=== PATIENT | female | born 1970 | race Caucasian/White ===

== ENCOUNTER 2018-05-29 09:56 | Outpatient (CLI) | payer OTHER ==
[2018-05-29 11:09] LABS: Hemoglobin 12.4 g/dL (12.0-16.0); Mean Corpuscular HGB CONC 31.5 g/dL (32.0-36.0); Mean Corpuscular Hemoglobin 28.3 pg (27.0-31.0); Mean Corpuscular Volume 89.7 fL (78.0-98.0); Mean Platelet Volume 7.8 fL (7.4-10.4); Platelet Count 331 thou/uL (130-400); Red Blood Cell (RBC) Count 4.37 mill/uL (4.20-5.40); White Blood Cell (WBC) Count 6.1 thou/uL (4.8-10.8)
[2018-05-29 11:15] LABS: INR-International Normal Ratio 0.9; PTT 29.6 SEC (22.9-36.1); Prothrombin Time 12.4 SEC (12.0-14.7)
[2018-05-29 11:35] LABS: Anion Gap 10 mmol/L (10-20); BUN (Urea Nitrogen) 7 mg/dL (7.0-18.7); Calc. Creatinine Clearance 0 mL/min (70-130); Calcium 9.1 mg/dL (7.8-10.44); Carbon Dioxide 27 mmol/L (22-29); Chloride 106 mmol/L (98-107); Estimated GFR-MDRD 82; Glucose 81 mg/dL (70-105); Potassium 4.4 mmol/L (3.5-5.1); Sodium 139 mmol/L (136-145)
[2018-05-29 12:37] LABS: BHCG - Serum Negative (NEGATIVE); Pregs Control Background? CLEAR/WHITE (CLR/WHITE); Pregs Control Bar Appear? YES (CONTROL BAR)
--- NOTE | 2018-05-29 15:41 | EKG ---
Test Reason : Blood Pressure : / mmHG Vent. Rate : 059 BPM Atrial Rate : 059 BPM P-R Int : 136 ms QRS Dur : 084 ms QT Int : 410 ms P-R-T Axes : 045 083 070 degrees QTc Int : 405 ms Sinus bradycardia Otherwise normal ECG No previous ECGs available Confirmed by DAVIN MCCARTY, DR. Orozco ([id number]) on 05/29/2018 3:40:58 PM Referred By: JOSE RAUL Confirmed By:DR. Ernesto JIN MD
== END 2018-05-29 09:57 | disposition home or self-care (01) ==
LOC: LABBT 09:56
PROVIDERS: ATTEND Surgery
DX: Z01.818 Encounter for other preprocedural examination (principal); M50.10 Cervical disc disorder with radiculopathy, unspecified cervical region; M48.02 Spinal stenosis, cervical region
CPT/HCPCS: 80048; 84703; 85027; 85610; 85730; 93005; 93010

== ENCOUNTER 2018-06-05 05:53 | Day surgery (SDC) | payer OTHER ==
[2018-06-05] MEDS ORDERED: CEFAZOLIN/Water 2 GM/20 ML SYRINGE ONE (06:08)
[2018-06-05] MEDS ORDERED: Sodium Chloride 0.9% 10 ML ONE (06:25)
[2018-06-05] MEDS ORDERED: Thrombin 5000 UNITS/5 ML VIAL ONE (06:25)
[2018-06-05] MEDS ORDERED: Midazolam HCl 2 mg/2 ml Vial ONE (07:07)
[2018-06-05] MEDS ORDERED: Fentanyl 100 MCG/2 ML VIAL ONE ×3 (07:26→09:34)
[2018-06-05] MEDS ORDERED: PACU-Morphine 4MG/ML VIAL SLOW IVP PRN (09:08)
[2018-06-05] MEDS ORDERED: Promethazine HCl 25 MG/ML VIAL IM PRN ×2 (09:08→09:29)
[2018-06-05] MEDS ORDERED: Meperidine HCl/PF 25 MG/ML VIAL SLOW IVP PRN (09:08)
[2018-06-05] MEDS ORDERED: Ondansetron HCl/PF 4 MG/2 ML Vial IVP PRN (09:08)
[2018-06-05] MEDS ORDERED: HYDROmorphone 2 MG/ML VIAL SLOW IVP PRN (09:08)
[2018-06-05] MEDS ORDERED: Promethazine HCl 25 MG/ML VIAL SLOW IVP PRN (09:08)
[2018-06-05] MEDS ORDERED: Morphine Sulfate 2 MG/ML SYRINGE SLOW IVP PRN (09:08)
[2018-06-05] MEDS ORDERED: Mag-Al 1200 mg/1200 mg/30 ML UDCUP PO PRN (09:29)
[2018-06-05] MEDS ORDERED: Cyclobenzaprine 10 MG TAB PO PRN (09:29)
[2018-06-05] MEDS ORDERED: Fleet Enema 133 ML BOT PR PRN (09:29)
[2018-06-05] MEDS ORDERED: Acetaminophen 325 MG TAB PO PRN (09:29)
[2018-06-05] MEDS ORDERED: traMADol HCl 50 MG TAB PO PRN (09:29)
[2018-06-05] MEDS ORDERED: Bisacodyl 10 MG SUPP PR PRN (09:29)
[2018-06-05] MEDS ORDERED: Milk Of Magnesia 30 ML UDCUP PO PRN (09:29)
[2018-06-05] MEDS ORDERED: Ketorolac Tromethamine 30 MG/ML VIAL ONE (09:36)
--- NOTE | 2018-06-05 10:08 | OP ---
OR: 11 WOUND TYPE: Type 1 wound. SURGEON: Erick Yu M.D. SEED LABORATORY ASSISTANT: Molina Levy PA-C. PREPROCEDURE DIAGNOSES: C6 radiculopathy with neck and arm pain with C5-C6 disk extrusion. POSTPROCEDURE DIAGNOSES: C6 radiculopathy with neck and arm pain with C5-C6 disk extrusion. PROCEDURES PERFORMED: 1. Anterior C5-C6 diskectomy for decompression of spinal cord and C6 nerve roots. 2. Preparation of endplates for arthrodesis with placement of interbody spacer packed with local bon e autograft obtained from same incision and allograft, C5-C6. 3. Anterior cervical plate and screw fixation, C5-C6. 4. Use of operative microscope for microdissection. DESCRIPTION OF PROCEDURE: After informed consent was obtained from the patient, the patient was brou ght to OR. Proper patient pause and identification was carried out. Right anterior oblique cristina was made in the neck crease to allow approach to the C5-C6 segment. This region was sterilely cleansed, prepared, and draped. Proper patient pause and identification was carried out. The wound was then opened with a combination of sharp, monopolar and blunt dissection. We proceeded lateral to the zoe nx and pharynx and medial to the right carotid sheath. We identified the prevertebral layer of deep cervical fascia and the C5-C6 segments were exposed. Localization film confirmed our area of interes t. We then performed distraction at C5-C6. The microscope was brought in for microdissection. A di skectomy was performed with use of the microscope and with excellent decompression of the common dura l tube and the C6 nerve roots, the endplates were prepared. We maximized hemostasis throughout. The wound was copiously irrigated. Interbody spacer was placed with graft for arthrodesis. The microsc ope was then removed and anterior cervical plate and screw fixation at C5-C6 then occurred. Final ti ghtening occurred. We are satisfied with our construct with both gross and fluoroscopic visualizatio n. The wound was then closed in anatomic layers over a drain. The patient then emerged from anesthe delmi.
[2018-06-05] MEDS: Sodium Chloride 0.9% 1,000 ML IV SCH ×2 (11:23→17:04)
[2018-06-05 12:43] VITALS: BMI 29.9
[2018-06-05] MEDS: Acetaminophen/Codeine 30-300mg Tablet PO PRN ×3 (13:07→21:35)
[2018-06-05] MEDS ORDERED: Dexamethasone 20 MG/5 ML VIAL ONE (13:34)
[2018-06-05] MEDS ORDERED: Glycopyrrolate 0.2 MG/ML 5 ML SYRINGE ONE (13:34)
[2018-06-05] MEDS ORDERED: Ondansetron HCl/PF 4 MG/2 ML Vial ONE (13:34)
[2018-06-05] MEDS ORDERED: PROPOFOL 200 MG/20 ML VIAL ONE (13:34)
[2018-06-05] MEDS ORDERED: Lidocaine 1% PF 5 ML VIAL ONE (13:34)
[2018-06-05] MEDS: CEFAZOLIN/Water 2 GM/20 ML SYRINGE SLOW IVP SCH ×2 (14:19→21:28)
[2018-06-05] MEDS: HYDROcodone/Acetaminophen 7.5/325 mg Tablet PO PRN (18:25)
[2018-06-06] MEDS: Acetaminophen/Codeine 30-300mg Tablet PO PRN (04:07)
[2018-06-06] MEDS: CEFAZOLIN/Water 2 GM/20 ML SYRINGE SLOW IVP SCH (06:11)
[2018-06-06] MEDS ORDERED: Famotidine 20 MG TAB PO SCH (09:00)
[2018-06-06] MEDS ORDERED: AMPHETAMINE PO SCH (09:00)
[2018-06-06] MEDS ORDERED: DEXTROAMPHETAMINE PO SCH (09:00)
[2018-06-06] MEDS: HYDROcodone/Acetaminophen 7.5/325 mg Tablet PO PRN (09:01)
[2018-06-06] MEDS: Sodium Chloride 0.9% 1,000 ML IV SCH (12:08)
[2018-06-06 12:34] VITALS: BP 110/75; TEMP 97.6
--- NOTE | 2018-06-06 20:34 | DIS ---
DATE OF ADMISSION: 06/05/2018 DATE OF DISCHARGE: 06/06/2018 DISCHARGE DIAGNOSIS: Cervical radiculopathy with cervical spinal stenosis. HOSPITAL COURSE: Ms. Gamboa was admitted to undergo C5-C6 ACDF with Dr. Yu for cervical spinal s tenosis and cervical radiculopathy. Her surgery was without complication and a drain was placed post operatively, and she required 1 overnight stay for adequate pain control and monitoring of drain outp ut. At the time of discharge, the patient had good strength in the bilateral upper extremities with some slight swallowing difficulties and posterior neck pain, but significant improvement in her bilat eral right greater than left upper extremity symptoms. Appropriate patient education and followup ap pointments were provided to the patient. Her drain was removed prior to discharge. Again, she met d ischarge criteria and understood to call the office with questions or concerns prior to her next [facility] owup appointment.
== END 2018-06-06 14:07 | disposition home or self-care (01) ==
LOC: SDC 05:53 → UNDOADMOB 09:27 → SURG B 09:27 → UNDODISOB 06-06 14:07 → SDC 06-06 14:07
PROVIDERS: ATTEND Surgery
PROC: 0RG10A0 Fusion of Cervical Vertebral Joint with Interbody Fusion Device, Anterior Approach, Anterior Column, Open Approach (ICD-10-PCS; principal; 2018-06-05)
PROC: 0RT30ZZ Resection of Cervical Vertebral Disc, Open Approach (ICD-10-PCS; principal; 2018-06-05)
DX: M50.122 Cervical disc disorder at C5-C6 level with radiculopathy (principal); M48.02 Spinal stenosis, cervical region; Z79.899 Other long term (current) drug therapy; Z88.8 Allergy status to other drugs, medicaments and biological substances
CPT/HCPCS: 76001; A4216; C1713; C1776; J0131; J1100; J1885; J2001; J2250; J2405; J2704; J3010; J3490

== ENCOUNTER 2018-07-18 14:35 | Outpatient (CLI) | payer OTHER ==
--- NOTE | 2018-07-18 15:47 | RAD ---
CERVICAL SPINE FOUR VIEWS: History: Neck pain. Prior surgery. FINDINGS: Anterior fixation hardware is in place at the C5-6 level without perihardware lucency. Metallic marke rs associated with interbody fusion material are within the confines of the disc space. Vertebral body height and alignment are maintained. Cervicothoracic junction is intact. No acute frac ture, dislocation, or aggressive osseous erosions. IMPRESSION: Anterior operative fixation cervical spine. No acute osseous abnormalities or evidence of hardware co mplication. POS: TEA
== END 2018-07-18 14:36 | disposition home or self-care (01) ==
LOC: TBSIIMAG 14:35
PROVIDERS: ATTEND Surgery
DX: M54.2 Cervicalgia (principal); Z98.1 Arthrodesis status
CPT/HCPCS: 72040